=== PATIENT | male | born 1945 | race Caucasian/White ===

== ENCOUNTER 2019-11-15 05:59 | Emergency (ER) | payer MEDICARE, OTHER ==
[2019-11-15] MEDS ORDERED: ONDANSETRON 4 MG/2 ML VIAL IVP STA (06:22)
[2019-11-15] MEDS ORDERED: SODIUM CHLORIDE 0.9% 1,000 ML IV STA (06:22)
[2019-11-15] MEDS ORDERED: MORPHINE 2 MG/ML CARPUJECT IVP STA ×2 (06:22→10:14)
--- NOTE | 2019-11-15 06:22 | ED Physician Documentation ---
<Dwight Ko - Last Filed: 11/16/19 05:53> History of Present Illness - Stated complaint Stated Complaint: AB PX - Chief complaint Chief Complaint: Abd Pain - History obtained from History obtained from: Patient (The patient is a 74-year-old male who presents with abdominal pain with nausea and vomiting he also reports occasional diarrhea and constipation as well. He tried taking Imodium and Lomotil yesterday but now is nominal pain and cramping. Denies any history of previous abdominal surgeries denies any dysuria hematuria or flank pain.) Review of Systems Constitutional: reports: Reviewed and negative Eyes: reports: Reviewed and negative Ears: reports: Reviewed and negative Nose: reports: Reviewed and negative Throat: reports: Reviewed and negative Cardiac: reports: Reviewed and negative Respiratory: reports: Reviewed and negative GI: reports: Abdominal Pain : reports: Reviewed and negative Skin: reports: Reviewed and negative Musculoskeletal: reports: Reviewed and negative Neurologic: reports: Reviewed and negative Psychiatric: reports: Reviewed and negative Endocrine: reports: Reviewed and negative Immunocompromised: reports: Reviewed and negative PD PAST MEDICAL HISTORY - Present Medications Home Medications: Ambulatory Orders Medication Instructions Recorded Confirmed Citalopram [CeleXA] 02/08/15 02/08/15 Lisinopril 20 mg PO DAILY 02/08/15 02/08/15 Naproxen 500 mg PO BID #15 tablet. 02/08/15 Pravastatin Sodium 20 mg PO 02/08/15 02/08/15 Tamsulosin [Flomax] 02/08/15 02/08/15 allopurinoL [Allopurinol] 100 mg PO DAILY 02/08/15 02/08/15 Hydrocodone/Acetaminophen 1 - 2 each PO Q6H PRN #10 tablet 11/15/19 [Hydrocodon-Acetaminophen 5-325] Ondansetron Odt [Zofran] 4 mg TL Q6H PRN #10 tablet 11/15/19 - Allergies Allergies/Adverse Reactions: Allergies Allergy/AdvReac Type Severity Reaction Status Date / Time Penicillins Allergy Unknown Verified 11/15/19 06:45 Sulfa (Sulfonamide Allergy Unknown Verified 11/15/19 06:45 Antibiotics) PD ED PE NORMAL - Vitals Vital signs reviewed: Yes - General General: Alert and oriented X 3, No acute distress, Well developed/nourished - HEENT HEENT: Atraumatic, PERRL - Neck Neck: Supple, no meningeal sign - Cardiac Cardiac: RRR, No murmur, Strong equal pulses - Respiratory Respiratory: No respiratory distress, Clear bilaterally - Abdomen Abdomen: Other (The abdomen is mildly distended its diffusely tender there is no midline abdominal pulsatile mass there is diminished bowel sounds there is negative Carreon sign negative psoas negative Rovsing's no CVA tenderness.) - Back Back: No CVA TTP, No spinal TTP - Derm Derm: Normal color, Warm and dry, No rash - Extremities Extremities: No deformity, No tenderness to palpate, Normal ROM s pain, No edema, No calf tenderness / cord - Neuro Neuro: Alert and oriented X 3, radar operator 2-12 intact, No motor deficit, No sensory deficit, Normal speech - Psych Psych: Normal mood, Normal affect PD MEDICAL DECISION MAKING - ED course Complexity details: re-evaluated patient, considered differential (Bowel obstruction, appendicitis, diverticulitis, pancreatitis, cholecystitis, Nephrolithiasis), d/w patient, other (Patient signed out at shift change to Dr. Wanda Cosby) Departure - Departure Disposition: 01 Home, Self Care Clinical Impression: Abdominal pain Qualifiers: Abdominal location: epigastric Qualified Code(s): R10.13 - Epigastric pain Pancreatitis, acute Qualifiers: Pancreatitis type: unspecified pancreatitis type Acute pancreatitis complication: no infection or necrosis Qualified Code(s): K85.90 - Acute pancreatitis without necrosis or infection, unspecified Condition: Stable Instructions: ED Pancreatitis Prescriptions: Hydrocodone/Acetaminophen [Hydrocodon-Acetaminophen 5-325] 1 - 2 each PO Q6H PRN #10 tablet PRN Reason: pain Ondansetron Odt [Zofran] 4 mg TL Q6H PRN #10 tablet PRN Reason: Nausea / Vomiting Comments: Your CT scan shows inflammation of your pancreas with scarring, indicating that you most likely have had pancreatitis previously, likely repeatedly. 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 Lam. She feels that the stones are likely chronic, but that you should follow up with the gastroenterologists at [facility] or [facility]. She would like you to see your doctor next week. We were unable to get your appointment moved up today, but you should keep the appointment you have scheduled. Please take the medication for pain and nausea, as needed. If you develop fever or yellow eyes, please return to the emergency dept immediately. Discharge Date/Time: 11/15/19 10:55 <AleaWanda Yamile - Last Filed: 11/19/19 17:32> Results - Vitals Vitals: Oxygen O2 Source Room air - Labs Labs: Laboratory Tests 11/15/19 11/15/19 11/15/19 06:15 06:15 06:15 WBC 9.6 RBC 4.93 Hgb 16.1 Hct 45.2 MCV 91.7 MCH 32.7 H MCHC 35.6 RDW 13.6 Plt Count 194 MPV 8.8 Neut # (Auto) 7.6 H Lymph # (Auto) 1.3 L Parker # (Auto) 0.6 Eos # (Auto) 0.1 Baso # (Auto) 0.0 Absolute Nucleated RBC 0.00 Nucleated RBC % 0.0 PT 14.3 H INR 1.3 H APTT 26.6 Sodium 134 L Potassium 3.5 Chloride 104 Carbon Dioxide 20 L Anion Gap 10.0 BUN 17 Creatinine 1.1 Estimated GFR (MDRD) 66 L Glucose 111 H Lactic Acid Calcium 9.4 Total Bilirubin 1.1 H AST 23 ALT 25 Alkaline Phosphatase 71 Total Creatine Kinase 97 Total Protein 7.3 Albumin 4.8 Globulin 2.5 Albumin/Globulin Ratio 1.9 Lipase 177 H Urine Color Urine Clarity Urine pH Ur Specific [place] Urine Protein Urine Glucose (UA) Urine Ketones Urine Occult Blood Urine Nitrite Urine Bilirubin Urine Urobilinogen Ur Leukocyte Esterase Ur Microscopic Review Urine Culture Comments 11/15/19 11/15/19 06:30 07:48 WBC RBC Hgb Hct MCV MCH MCHC RDW Plt Count MPV Neut # (Auto) Lymph # (Auto) Parker # (Auto) Eos # (Auto) Baso # (Auto) Absolute Nucleated RBC Nucleated RBC % PT INR APTT Sodium Potassium Chloride Carbon Dioxide Anion Gap BUN Creatinine Estimated GFR (MDRD) Glucose Lactic Acid 1.3 Calcium Total Bilirubin AST ALT Alkaline Phosphatase Total Creatine Kinase Total Protein Albumin Globulin Albumin/Globulin Ratio Lipase Urine Color YELLOW Urine Clarity CLEAR Urine pH 5.5 Ur Specific [place] 1.015 Urine Protein NEGATIVE Urine Glucose (UA) NEGATIVE Urine Ketones NEGATIVE Urine Occult Blood NEGATIVE Urine Nitrite NEGATIVE Urine Bilirubin NEGATIVE Urine Urobilinogen 0.2 (NORMAL) Ur Leukocyte Esterase NEGATIVE Ur Microscopic Review NOT INDICATED Urine Culture Comments NOT INDICATED - Rads (name of study) CT abd/pelvis Radiology: Final report received, EMP read indepedently, See rad report PD MEDICAL DECISION MAKING - ED course ED course: Patient was signed out to me by Dr. Ko, pending work-up for his abdominal pain. He was found to have a mildly elevated lipase, but CT scan did show ductal dilatation throughout the pancreas and a 9 mm stone in the pancreatic duct. I spoke with Dr. Lam, who is on-call for surgery, and she stated that this is something that should be follow-up as an outpatient, but would not require admission for the stone itself. She suggested that the patient follow- up with his primary care physician within the next week and that the primary care physician should arrange for follow-up with [facility] or GI to determine whether further intervention is needed on a nonemergent basis, considering that the stone likely has been there for quite some time. I discussed with the patient whether he needed to be admitted for symptomatic control and he stated he preferred to go home. He states he has an appointment with his doctor next week. I have given him very detailed instructions regarding conversation with Dr. Lam and the need for recommended follow-up. We have also discussed the usual indications for return.
[2019-11-15] MEDS ORDERED: IOVERSOL 320 100 ML VIAL IVP ONE ×2 (06:29→07:14)
[2019-11-15 06:37] LABS: BASOPHILS % (AUTO) 0.3 %; EOSINOPHILS # (AUTO) 0.1 10^3/uL (0.0-0.7); EOSINOPHILS % (AUTO) 1.2 %; HGB - HEMOGLOBIN 16.1 g/dL (14.0-18.0); LYMPHOCYTES # (AUTO) 1.3 10^3/uL (1.5-3.5); LYMPHOCYTES % (AUTO) 13.2 %; MEAN CORPUSCULAR HEMOGLOBIN 32.7 pg (27.0-31.0); MEAN CORPUSCULAR HGB CONC 35.6 g/dL (32.0-36.0); MEAN CORPUSCULAR VOLUME 91.7 fL (80.0-94.0); MEAN PLATELET VOLUME 8.8 fL (7.4-11.4); MONOCYTES # (AUTO) 0.6 10^3/uL (0.0-1.0); NEUTROPHILS # (AUTO) 7.6 10^3/uL (1.5-6.6); NEUTROPHILS % (AUTO) 78.9 %; PLT - PLATELET COUNT 194 10^3/uL (130-450); RED BLOOD COUNT 4.93 10^6/uL (4.70-6.10); RED CELL DISTRIBUTION WIDTH 13.6 % (12.0-15.0); WHITE BLOOD COUNT 9.6 x10^3/uL (4.8-10.8)
[2019-11-15 06:42] LABS: INR 1.3 (0.8-1.2); PT - PROTHROMBIN TIME 14.3 secs (9.9-12.6)
[2019-11-15 06:47] LABS: ALBUMIN 4.8 g/dL (3.2-5.5); ALBUMIN/GLOBULIN RATIO 1.9 (1.0-2.2); BILIRUBIN,TOTAL 1.1 mg/dL (0.2-1.0); CALCIUM 9.4 mg/dL (8.5-10.3); CREATININE 1.1 mg/dL (0.6-1.2); TOTAL PROTEIN 7.3 g/dL (6.7-8.2)
[2019-11-15 06:49] LABS: PARTIAL THROMBOPLASTIN TIME 26.6 secs (24.9-33.3)
[2019-11-15 08:04] LABS: BILIRUBIN,URINE NEGATIVE (NEGATIVE); GLUCOSE, URINE (UA) NEGATIVE (NEGATIVE); KETONES,URINE (UA) NEGATIVE (NEGATIVE); LEUKOCYTE ESTERASE, URINE NEGATIVE (NEGATIVE); NITRITE,URINE NEGATIVE (NEGATIVE); OCCULT BLOOD,URINE NEGATIVE (NEGATIVE); PH,URINE 5.5 PH (5.0-7.5); PROTEIN,URINE NEGATIVE (NEGATIVE); UROBILINOGEN,URINE 0.2 (NORMAL) E.U./dL (NORMAL)
[2019-11-15 08:05] LABS: CLARITY,URINE CLEAR (CLEAR)
--- NOTE | 2019-11-15 08:28 | CT Report ---
Reason: abd pain Procedure Date: 11/15/2019 Accession Number: [id number] / [id number] Procedure: CT - Abdomen/Pelvis W CPT Code: Final Report FULL RESULT: EXAM: CT ABDOMEN AND PELVIS EXAM DATE: 11/15/2019 07:13 AM. CLINICAL HISTORY: Abd pain. COMPARISONS: None. TECHNIQUE: Routine helical CT imaging was performed through the abdomen and pelvis. IV contrast: 100 cc OPTIRAY 320. Enteric contrast: No. Reconstructions: Coronal and sagittal. In accordance with CT protocol optimization, one or more of the following dose reduction techniques were utilized for this exam: automated exposure control, adjustment of mA and/or KV based on patient size, or use of iterative reconstructive technique. FINDINGS: Lung Bases: Unremarkable Liver: There is and mildly hypodense 1.1 cm focal round lesion within the anterior margin of segment 4A, dense edema measurement 61 HU. This is nonspecific. There is a 6 mm discrete hypodensity within the inferomedial margin of the right lobe which likely represents a cyst but is too small to definitively characterize. Evidence of diffuse fatty infiltration of the liver. Gallbladder/Bile Ducts: Unremarkable. Spleen: Normal. Pancreas: Substantial atrophy of much of the pancreas, with relative sparing of the pancreatic head. There is substantial pancreatic ductal dilatation, measuring up to 13 mm, extending to the level of the head to the level of a 9 mm calculus which appears to be intraductal. Along its right upper margin there is abutting 8 mm calculus. A bilobed single calculus is not excluded. There is peripancreatic hazy opacity and stranding and mild fluid consistent with acute pancreatitis. No db pseudocyst demonstrated. Adrenal Glands: Normal. Kidneys: Left kidney is atrophic but enhances. There are multiple areas of left renal cortical thinning suggesting scarring. There is an approximately 11 mm left renal upper pole cyst. There are multiple additional small bilateral renal hypodensities which are too small to definitively characterize, particular given the cortical phase of renal enhancement. There is distention left renal pelvis without db caliectasis or ureteral dilatation which suggests a normal prominent extrarenal pelvis. No significant perinephric stranding. Peritoneal Cavity/Bowel: Peripancreatic hazy opacity/inflammation and mild fluid, as above. Mild fluid in the right paracolic gutter extending into the upper pelvis. No free air. No loculated fluid collections. No db adenopathy. The appendix is well visualized and normal. Colonic diverticulosis without evidence of diverticulitis. Pelvic Organs: Moderate bladder distention without db mass or significant wall thickening. There is a 5.6 cm posterior left lateral diverticulum. The prostate is enlarged, transverse diameter 5.5 cm. There is a pattern consistent with nodular prostate enlargement encroaching into the bladder base. Bladder based mass is not definitely excluded but is considered significantly less likely. Vasculature: Calcifications, without aneurysm. Bones: Upper lumbar levoconvex and lower lumbar dextroconvex curvature with substantial degenerative disease. No acute abnormalities. Other: None. IMPRESSION: 1. Findings consistent with acute pancreatitis. There is substantial atrophy of the pancreas, with sparing of the pancreatic head, and severe pancreatic ductal dilatation extending to the level of pancreatic calculi with at least one intraductal calculus measuring 9 mm. 2. Nonspecific 1.1 cm hepatic lesion. MR imaging is recommended for further characterization. 3. Colonic diverticulosis without evidence of diverticulitis. 4. Prostate enlargement with a pattern consistent with nodular prostate enlargement encroaching into the bladder base. Large left bladder diverticulum. 5. Atrophic left kidney. Evidence of bilateral renal cysts although multiple small hypodensities are too small to characterize on this exam. If further evaluation is indicated, ultrasound would be recommended. 6. Additional chronic findings, as above. RADIA
[2019-11-15 10:45] VITALS: BP 152/92
== END 2019-11-15 10:55 | disposition home or self-care (01) ==
LOC: ED 05:59
DX: K85.90 Acute pancreatitis without necrosis or infection, unspecified (principal); K86.89 Other specified diseases of pancreas
CPT/HCPCS: 36415; 74177; 80053; 81003; 82550; 83605; 83690; 85025; 85610; 85730; 96361; 96374; 96376; 99284; Q9967; 81001; 87086

== ENCOUNTER 2021-05-03 00:05 | Outpatient (CLI) | payer MEDICARE, OTHER | END 2021-05-03 00:06 | disposition critical access hospital (66) | LOC: EMS 00:05 | DX: R10.9 Unspecified abdominal pain (principal); R11.0 Nausea; R14.0 Abdominal distension (gaseous) | CPT/HCPCS: A0425; A0427 ==

== ENCOUNTER 2021-05-04 00:19 | Emergency (ER) | payer MEDICARE, OTHER ==
[2021-05-04] MEDS ORDERED: SODIUM CHLORIDE 0.9% 1,000 ML IV STA (00:38)
[2021-05-04] MEDS ORDERED: HYDROmorphone 1 MG/ML CARPUJECT IVP STA (00:38)
--- NOTE | 2021-05-04 00:47 | ED Physician Documentation ---
History of Present Illness - Stated complaint Stated Complaint: ABD PAIN - Chief complaint Chief Complaint: Abd Pain - History obtained from History obtained from: Patient - Additonal information Additional information: 75-year-old man with past medical history of pancreatitis and pancreatic duct stones status post lithotripsy in 2019 presents with epigastric abd pain similar to prior pancreatitis flare "but more pressure like", nonradiating , 810 at present after 100 fentanyl IV given by ems. patient had sudden onset, constant pain tonight an hour after eating dinner and had similar episode last night after dinner. He and his were unsure if he had food poisoning from bad fish because "the salmon tasted fishy". patient had one episode nbnb n/v last night and was nauseous en route with ems, though it has now improved. denies cp, soa, fevers, diarrhea. +hot flashes. Review of Systems Ten Systems: 10 systems reviewed and negative Constitutional: reports: Chills. denies: Fever Cardiac: denies: Chest pain / pressure Respiratory: denies: Dyspnea, Cough GI: reports: Abdominal Pain, Nausea, Vomiting. denies: Diarrhea PD PAST MEDICAL HISTORY - Past Medical History Past Medical History: Yes Cardiovascular: Hypertension Respiratory: None Neuro: None Endocrine/Autoimmune: None GI: GERD, Pancreatitis : Benign prostate hypertrophy HEENT: None Psych: None Musculoskeletal: Gout Derm: None - Past Surgical History Past Surgical History: Yes General: EGD - Present Medications Home Medications: Ambulatory Orders Medication Instructions Recorded Confirmed Citalopram [CeleXA] 10 mg PO DAILY 02/08/15 05/04/21 Lisinopril 20 mg PO DAILY 02/08/15 05/04/21 Tamsulosin [Flomax] 0.4 mg PO DAILY 02/08/15 05/04/21 allopurinoL [Allopurinol] 300 mg PO DAILY 02/08/15 05/04/21 Hydrocodone/Acetaminophen 1 - 2 each PO Q6H PRN #10 tablet 11/15/19 05/04/21 [Hydrocodon-Acetaminophen 5-325] Acetaminophen [Tylenol] 650 mg PO Q6HR PRN 05/04/21 05/04/21 Aspirin [[place] Aspirin] 81 mg PO DAILY 05/04/21 05/04/21 Ergocalciferol [Vitamin D2] 1,000 unit PO DAILY 05/04/21 05/04/21 Fexofenadine/Pseudoephedrine 1 tab PO DAILY PRN 05/04/21 05/04/21 [Jody-D 24 Hour Tablet] Omeprazole Magnesium 20 mg PO 05/04/21 Pravastatin [Pravachol] 10 mg PO DAILY 05/04/21 05/04/21 SUMAtriptan [Imitrex] 50 mg PO DAILY PRN 05/04/21 05/04/21 - Allergies Allergies/Adverse Reactions: Allergies Allergy/AdvReac Type Severity Reaction Status Date / Time Penicillins Allergy Unknown Verified 05/04/21 00:40 Sulfa (Sulfonamide Allergy Unknown Verified 05/04/21 00:40 Antibiotics) - Social History Does the pt smoke?: No Smoking Status: Never smoker Does the pt drink ETOH?: No Does the pt have substance abuse?: No - Immunizations Immunizations are current?: Yes - POLST Patient has POLST: No PD ED PE NORMAL - Vitals Vital signs reviewed: Yes - General General: Alert and oriented X 3, No acute distress, Well developed/nourished - HEENT HEENT: Atraumatic, PERRL, EOMI - Neck Neck: Supple, no meningeal sign - Cardiac Cardiac: RRR - Respiratory Respiratory: No respiratory distress, Clear bilaterally - Abdomen Abdomen: Other (ttp in epigastrium, otherwise ntnd) - Derm Derm: Normal color - Extremities Extremities: No deformity - Neuro Neuro: Alert and oriented X 3 - Psych Psych: Normal mood, Normal affect Results - Vitals Vitals: Vital Signs - 24 hr 05/04/21 05/04/21 05/04/21 00:20 00:47 02:18 Temperature 35.6 C L Heart Rate 62 59 L 57 L Respiratory 12 18 15 Rate Blood Pressure 156/82 H 137/84 H 142/81 H O2 Saturation 98 99 94 05/04/21 03:33 Temperature Heart Rate 60 Respiratory 13 Rate Blood Pressure 110/65 O2 Saturation 100 Oxygen O2 Source Room air - EKG (time done) 0031 Rate: Rate (enter#) (57) Rhythm: NSR Gabriels: Normal Intervals: Normal OR QRS: Normal Ischemia: Normal ST segments - Labs Labs: Laboratory Tests 05/04/21 05/04/21 05/04/21 01:04 01:04 04:00 WBC 8.6 RBC 4.78 Hgb 15.4 Hct 43.7 MCV 91.4 MCH 32.2 H MCHC 35.2 RDW 13.8 Plt Count 181 MPV 9.0 Neut # (Auto) 6.7 H Lymph # (Auto) 1.2 L [place] # (Auto) 0.5 Eos # (Auto) 0.1 Baso # (Auto) 0.0 Absolute Nucleated RBC 0.00 Nucleated RBC % 0.0 Sodium 138 Potassium 3.4 L Chloride 107 Carbon Dioxide 17 L Anion Gap 14.0 H BUN 21 H Creatinine 1.3 H Estimated GFR (MDRD) 54 L Glucose 140 H Calcium 9.7 Total Bilirubin 1.2 H AST 21 ALT 22 Alkaline Phosphatase 67 Total Protein 7.1 Albumin 4.8 Globulin 2.3 Albumin/Globulin Ratio 2.1 Lipase 40 Urine Color YELLOW Urine Clarity CLEAR Urine pH 5.0 Ur Specific [place] 1.020 Urine Protein NEGATIVE Urine Glucose (UA) NEGATIVE Urine Ketones TRACE Urine Occult Blood NEGATIVE Urine Nitrite NEGATIVE Urine Bilirubin NEGATIVE Urine Urobilinogen 0.2 (NORMAL) Ur Leukocyte Esterase NEGATIVE Ur Microscopic Review NOT INDICATED Urine Culture Comments NOT INDICATED PD MEDICAL DECISION MAKING - ED course ED course: 75yM presents with epigastric abd pain similar to prior pancreatitis flare. will obtain labs, ct, and treat symptomatically. Prelim ultrasound information shows no signs of cholecystitis. u/s gallbladder with 2 stones at gallbladder neck. no cbd dilation. no pericholecystic fluid. GB wall was 32 mm. GB mildly distended (width about 5cm). no sonographic valenzuela sign. d/w Dr. Ibarra who recommends outpatient surgery clinic follow up. strict return precautions provided to patient. Departure - Departure Disposition: 01 Home, Self Care Clinical Impression: Abdominal pain, Chronic pancreatitis, Gallstones Condition: Stable Instructions: Abdominal Pain, Gallstones Dc Follow-Up: Junior Lam MD [Provider Admit Priv/Credential] - Comments: You were seen in the emergency department for abdominal pain. Your labwork and CT uncovered no emergent cause for your pain. You do have two gallstones lodged at the opening of the gallbladder likely causing your symptoms. Please follow up with general surgery clinic this week. Avoid foods high in fat that can cause gallstone colick. Return to the emergency department if you have fever, new or worsening symptoms or other concerns.
[2021-05-04 01:10] LABS: BASOPHILS % (AUTO) 0.5 %; EOSINOPHILS # (AUTO) 0.1 10^3/uL (0.0-0.7); EOSINOPHILS % (AUTO) 1.2 %; HCT - HEMATOCRIT 43.7 % (42.0-52.0); HGB - HEMOGLOBIN 15.4 g/dL (14.0-18.0); LYMPHOCYTES # (AUTO) 1.2 10^3/uL (1.5-3.5); LYMPHOCYTES % (AUTO) 13.5 %; MEAN CORPUSCULAR HEMOGLOBIN 32.2 pg (27.0-31.0); MEAN CORPUSCULAR HGB CONC 35.2 g/dL (32.0-36.0); MEAN CORPUSCULAR VOLUME 91.4 fL (80.0-94.0); MONOCYTES # (AUTO) 0.5 10^3/uL (0.0-1.0); MONOCYTES % (AUTO) 5.7 %; NEUTROPHILS # (AUTO) 6.7 10^3/uL (1.5-6.6); NEUTROPHILS % (AUTO) 78.6 %; PLT - PLATELET COUNT 181 10^3/uL (130-450); RED BLOOD COUNT 4.78 10^6/uL (4.70-6.10); RED CELL DISTRIBUTION WIDTH 13.8 % (12.0-15.0); WHITE BLOOD COUNT 8.6 x10^3/uL (4.8-10.8)
[2021-05-04 01:23] LABS: ALBUMIN 4.8 g/dL (3.2-5.5); ALBUMIN/GLOBULIN RATIO 2.1 (1.0-2.2); BILIRUBIN,TOTAL 1.2 mg/dL (0.2-1.0); CALCIUM 9.7 mg/dL (8.5-10.3); CREATININE 1.3 mg/dL (0.6-1.2); POTASSIUM 3.4 mmol/L (3.5-5.0); TOTAL PROTEIN 7.1 g/dL (6.7-8.2)
[2021-05-04] MEDS ORDERED: IOVERSOL 320 100 ML VIAL IVP ONE ×2 (01:42→02:12)
[2021-05-04] MEDS ORDERED: FAMOTIDINE 20 MG/2 ML VIAL IVP STA (02:36)
[2021-05-04 04:08] LABS: BILIRUBIN,URINE NEGATIVE (NEGATIVE); GLUCOSE, URINE (UA) NEGATIVE (NEGATIVE); KETONES,URINE (UA) TRACE mg/dL (NEGATIVE); LEUKOCYTE ESTERASE, URINE NEGATIVE (NEGATIVE); NITRITE,URINE NEGATIVE (NEGATIVE); OCCULT BLOOD,URINE NEGATIVE (NEGATIVE); PROTEIN,URINE NEGATIVE (NEGATIVE); UROBILINOGEN,URINE 0.2 (NORMAL) E.U./dL (NORMAL)
[2021-05-04 04:09] LABS: CLARITY,URINE CLEAR (CLEAR)
[2021-05-04] MEDS ORDERED: ONDANSETRON 4 MG/2 ML VIAL IVP STA (04:47)
[2021-05-04 08:12] VITALS: BP 133/81
--- NOTE | 2021-05-04 08:26 | CT Report ---
PROCEDURE: Abdomen/Pelvis W INDICATIONS: Epigastric pain, hx pancreatitis CONTRAST: IV CONTRAST: Optiray 320 ml. TECHNIQUE: After the administration of intravenous contrast, 5 mm thick sections acquired from the diaphragms to the symphysis. 5 mm thick coronal and sagittal reformats were acquired. For radiation dose reducti on, the following was used: automated exposure control, adjustment of mA and/or kV according to loreto ent size. COMPARISON: CT abdomen and pelvis with contrast, 11/15/2019. FINDINGS: Image quality: Excellent. ABDOMEN: Lung bases: Lung bases are clear. Heart size is normal. Small hiatal hernia. Solid organs: Liver and spleen are normal in size and enhancement. Mild hepatic fatty infiltration. There is a 1.3 cm low-density nodule in segment 4 of liver anteriorly, unchanged. Gallbladder is mildly distended. There are gallstones in the gallbladder neck. Biliary system is non dilated. Pancreas is atrophic. There is chronic pancreatic duct dilation. There is a 5 x 8 mm stone in the are a of pancreatic head, which was present on the prior examination. No adrenal nodules. Left kidney is atrophic with cortical thinning and small cortical cysts. Parapel zandra cysts are seen in the inferior pole the right kidney. Right kidney is normal in size. No renal st ones or hydronephrosis. Peritoneum and bowel: Bowel loops demonstrate normal wall thickness and caliber. There are multiple colonic diverticula. No CT findings to suggest acute diverticulitis. No free fluid or air. Nodes and vessels: No retroperitoneal or mesenteric adenopathy by size criteria. Aorta and inferior vena cava are normal in size. Miscellaneous: No ventral hernias. PELVIS: Genitourinary: Bladder wall thickness is normal. There is a 4.2 cm diverticulum arising from the po sterior wall of the urinary bladder, which was present on the last exam and appears unchanged. Prosta te is enlarged. Miscellaneous: No inguinal hernias or adenopathy. Bones: No suspicious bony lesions. No vertebral body compression fractures. IMPRESSION: 1. Gallladder is distended. There are gallstones in the gallbladder neck. No gallbladder wall thicken ing or pericholecystic fluid collection. 2. Pancreas is atrophic likely sequelae of chronic pancreatitis. Pancreatic duct is dilated but uncha nged from the last exam. There is a 5 x 8 mm stone in the area of the head of pancreas, unchanged. 3. Hepatic steatosis. There is a 1.3 cm low-density nodule in the left hepatic lobe within anterior a spect of the segment 4, unchanged. 4. Left renal atrophy. There are renal cysts bilaterally. No renal stones or hydronephrosis. 5. A 4.2 cm diverticulum in the left posterior bladder. 6. Enlarged prostate. 7. Diverticulosis without diverticulitis. No significant discrepancy with the preliminary interpretation. Reviewed by: Yomi Ivy MD on 05/04/2021 8:25 AM PST Approved by: Yomi Ivy MD on 05/04/2021 8:25 AM PST Station ID: [id number]
--- NOTE | 2021-05-04 09:22 | Ultrasound Report ---
PROCEDURE: Abdomen Limited INDICATIONS: RUQ ultrasound TECHNIQUE: Real-time scanning was performed of the abdominal and retroperitoneal organs, with image documentatio n. COMPARISON: None. FINDINGS: Liver: Liver is normal in size and increased in echotexture. Gallbladder: Gallbladder demonstrates 2 foci within the gallbladder neck with overall gallbladder dis tention. Wall thickness measures 3.3 cm. Biliary ducts: Intrahepatic bile ducts are non-dilated. Extrahepatic bile duct caliber measures 5.5 mm. Normal is 6-7 mm or less in diameter, or 10 mm or less post-cholecystectomy. Pancreas: Visualized portions of the pancreas are sonographically normal. Kidneys: Right kidney measures 10.5 cm long. No nephrolithiasis. Inferior right renal pole cysts ar e noted. No solid masses. Aorta: Visualized aorta is normal in caliber at less than 3 cm. Iliacs: Proximal common iliac arteries are normal in caliber at less than 2.5 cm. IVC: Intrahepatic inferior vena cava is patent. Miscellaneous: No free abdominal fluid. IMPRESSION: Gallstones at the gallbladder neck, possibly impacted, with mildly thickened gallbladder wall. No per icholecystic fluid. Continued surveillance is recommended, as developing cholecystitis cannot be excl uded. Mild hepatic steatosis. Reviewed by: Kate Betancourt MD on 05/04/2021 9:21 AM PST Approved by: Kate Betancourt MD on 05/04/2021 9:21 AM PST Station ID: [id number]
== END 2021-05-04 07:40 | disposition home or self-care (01) ==
LOC: EDUNIT# → SUPCPDRO 00:19 → ED 00:19
DX: R10.13 Epigastric pain (principal); K86.1 Other chronic pancreatitis; K80.20 Calculus of gallbladder without cholecystitis without obstruction; K76.0 Fatty (change of) liver, not elsewhere classified; I10 Essential (primary) hypertension; Z79.82 Long term (current) use of aspirin
CPT/HCPCS: 36415; 74177; 76705; 80053; 81003; 83690; 85025; 93005; 96374; 96375; 99284; J1170; Q9967; 81001; 87086

== ENCOUNTER 2022-10-04 18:34 | Outpatient (CLI) | payer MEDICARE, OTHER | END 2022-10-04 23:59 | disposition critical access hospital (66) | LOC: EMS 18:34 | DX: R10.13 Epigastric pain (principal); R11.2 Nausea with vomiting, unspecified; R61 Generalized hyperhidrosis; R42 Dizziness and giddiness | CPT/HCPCS: A0425; A0427 ==

== ENCOUNTER 2022-10-04 18:48 | Emergency (ER) | payer MEDICARE, OTHER ==
--- NOTE | 2022-10-04 19:00 | ED Physician Documentation ---
PD HPI ABD PAIN - Stated complaint Stated Complaint: EPIGASTRIC PAIN, N/V - History obtained from History obtained from: Patient - Additional information Additional information: He was originally diagnosed with gallstones about 2 years ago. Since then has had very occasional gallbladder attacks. The last major 1 was about a year ago. He is scheduled for a laparoscopic cholecystectomy in [address] Caldwell in [place]. About half an hour ago developed severe epigastric pain like he was being stabbed similar to prior gallbladder attacks with severe nausea. He took 2 hydrocodone at home and had 4 mg of Zofran from EMS on the way here and his pain and nausea are much better albeit not quite abated. PD PAST MEDICAL HISTORY - Past Medical History Cardiovascular: Hypertension Respiratory: None Neuro: None Endocrine/Autoimmune: None GI: GERD, Pancreatitis : Benign prostate hypertrophy HEENT: None Psych: None Musculoskeletal: Gout Derm: None - Past Surgical History Past Surgical History: Yes General: EGD - Present Medications Home Medications: Ambulatory Orders Medication Instructions Recorded Confirmed Citalopram [CeleXA] 10 mg PO DAILY 02/08/15 05/04/21 Lisinopril 20 mg PO DAILY 02/08/15 05/04/21 Tamsulosin [Flomax] 0.4 mg PO DAILY 02/08/15 05/04/21 allopurinoL [Allopurinol] 300 mg PO DAILY 02/08/15 05/04/21 Hydrocodone/Acetaminophen 1 - 2 each PO Q6H PRN #10 tablet 11/15/19 05/04/21 [Hydrocodon-Acetaminophen 5-325] Acetaminophen [Tylenol] 650 mg PO Q6HR PRN 05/04/21 05/04/21 Aspirin [[place]hin Aspirin] 81 mg PO DAILY 05/04/21 05/04/21 Ergocalciferol [Vitamin D2] 1,000 unit PO DAILY 05/04/21 05/04/21 Fexofenadine/Pseudoephedrine 1 tab PO DAILY PRN 05/04/21 05/04/21 [Jody-D 24 Hour Tablet] Omeprazole Magnesium 20 mg PO 05/04/21 Pravastatin [Pravachol] 10 mg PO DAILY 05/04/21 05/04/21 SUMAtriptan [Imitrex] 50 mg PO DAILY PRN 05/04/21 05/04/21 - Allergies Allergies/Adverse Reactions: Allergies Allergy/AdvReac Type Severity Reaction Status Date / Time Penicillins Allergy Unknown Verified 10/04/22 19:07 Sulfa (Sulfonamide Allergy Unknown Verified 10/04/22 19:07 Antibiotics) - Social History Does the pt smoke?: No Smoking Status: Never smoker Does the pt drink ETOH?: No Does the pt have substance abuse?: No - Immunizations Immunizations are current?: Yes - POLST Patient has POLST: No PD ED PE NORMAL - Vitals Vital signs reviewed: Yes - General General: Alert and oriented X 3, No acute distress - Cardiac Cardiac: RRR, No murmur - Respiratory Respiratory: No respiratory distress, Clear bilaterally - Abdomen Abdomen: Other (Mild epigastric tenderness without surgical signs or Carreon sign.) - Neuro Neuro: Alert and oriented X 3, Normal speech Results - Vitals Vitals: Vital Signs - 24 hr 10/04/22 10/04/22 10/04/22 18:54 19:34 20:30 Temperature 36.6 C Heart Rate 75 58 L 60 Respiratory 16 9 L 17 Rate Blood Pressure 142/83 H 130/75 133/80 H O2 Saturation 100 100 100 Oxygen O2 Source Room air - EKG (time done) 1909 EKG releavant findings:: EKG personally interpreted by author of this note. Relevant findings are: Rate: Rate (enter#) (62) Rhythm: NSR [place]: RAD Intervals: Normal [place] QRS: Normal Ischemia: Normal ST segments - Labs Labs: Laboratory Tests 10/04/22 10/04/22 19:11 19:11 WBC 7.7 RBC 4.67 L Hgb 15.0 Hct 43.4 MCV 92.9 MCH 32.1 H MCHC 34.6 RDW 14.6 Plt Count 150 MPV 9.4 Neut # (Auto) 5.9 Lymph # (Auto) 1.1 L [place] # (Auto) 0.4 Eos # (Auto) 0.2 Baso # (Auto) 0.0 Absolute Nucleated RBC 0.00 Nucleated RBC % 0.0 Sodium 142 Potassium 3.7 Chloride 113 H Carbon Dioxide 18 L Anion Gap 11.0 BUN 21 H Creatinine 1.3 H Estimated GFR (MDRD) 54 L Glucose 124 H Calcium 9.4 Total Bilirubin 0.8 AST 80 H ALT 44 Alkaline Phosphatase 74 Total Protein 7.3 Albumin 4.6 Globulin 2.7 Albumin/Globulin Ratio 1.7 Lipase 29 PD Medical Decision Making - ED course ED course: 77-year-old gentleman with apparent gallbladder attack. His pain resolved while here and he was nontender prior to discharge at around 8:30 PM. This is not consistent with cholecystitis at this point. He has an appropriate appointment to get his gallbladder out within the next couple of weeks. CBC is reviewed and normal. CMP reviewed with some mild acidosis and hyperchloremia. No evidence of biliary blockage. Departure - Departure Disposition: 01 Home, Self Care Clinical Impression: Biliary colic Condition: Good Record reviewed to determine appropriate education?: Yes Instructions: ED Gallstone W Biliary Colic Comments: Return if pain recurs, light low-protein low-fat diet until your gallbladder is out.
[2022-10-04 19:29] LABS: ALBUMIN 4.6 g/dL (3.2-5.5); ALBUMIN/GLOBULIN RATIO 1.7 (1.0-2.2); BASOPHILS % (AUTO) 0.5 %; BILIRUBIN,TOTAL 0.8 mg/dL (0.2-1.0); CALCIUM 9.4 mg/dL (8.5-10.3); CREATININE 1.3 mg/dL (0.6-1.2); EOSINOPHILS # (AUTO) 0.2 10^3/uL (0.0-0.7); EOSINOPHILS % (AUTO) 2.7 %; HCT - HEMATOCRIT 43.4 % (42.0-52.0); LYMPHOCYTES # (AUTO) 1.1 10^3/uL (1.5-3.5); LYMPHOCYTES % (AUTO) 14.3 %; MEAN CORPUSCULAR HEMOGLOBIN 32.1 pg (27.0-31.0); MEAN CORPUSCULAR HGB CONC 34.6 g/dL (32.0-36.0); MEAN CORPUSCULAR VOLUME 92.9 fL (80.0-94.0); MEAN PLATELET VOLUME 9.4 fL (7.4-11.4); MONOCYTES # (AUTO) 0.4 10^3/uL (0.0-1.0); MONOCYTES % (AUTO) 4.8 %; NEUTROPHILS # (AUTO) 5.9 10^3/uL (1.5-6.6); NEUTROPHILS % (AUTO) 77.3 %; PLT - PLATELET COUNT 150 10^3/uL (130-450); POTASSIUM 3.7 mmol/L (3.5-5.0); RED BLOOD COUNT 4.67 10^6/uL (4.70-6.10); RED CELL DISTRIBUTION WIDTH 14.6 % (12.0-15.0); TOTAL PROTEIN 7.3 g/dL (6.7-8.2); WHITE BLOOD COUNT 7.7 x10^3/uL (4.8-10.8)
[2022-10-04 20:32] VITALS: BP 133/80
== END 2022-10-04 20:49 | disposition home or self-care (01) ==
LOC: EDUNIT# → ED 18:48
DX: K80.50 Calculus of bile duct without cholangitis or cholecystitis without obstruction (principal)
CPT/HCPCS: 36415; 80053; 83690; 85025; 93005; 99283